=== PATIENT | male | born 1945 | race Caucasian/White ===

== ENCOUNTER 2016-03-18 16:14 | Inpatient (IN) | payer MEDICARE ==
[~2016-03-18] VITALS: Ht 177.8 cm; Wt 119.7 kg
[~2016-03-18 16:14] MED LIST: ADVIL200 MG PO; BAYER CHEWABLE81 MG PO; CARAFATE1 G/10 ML PO; HYDROCHLOROTHIA25 MG PO; KLOR-CON 1010 MEQ PO; MULTIPLE VITAMI1 TA1 PO; PRAVACHOL20 MG PO; PROTONIX40 MG PO
[2016-03-18 16:59] LABS: BASOPHILS 0.1 % (0.0-2.0); HEMATOCRIT 43.1 % (42.0-54.0); HEMOGLOBIN 14.7 g/dL (13.5-17.5); IMMATURE GRANULOCYTES 0.2 % (0-5); LYMPHOCYTES 17.1 % (15-50); MCH 30.8 pg (26.0-34.0); MCHC 34.1 g/dL (31.0-37.0); MCV 90.4 fL (80.0-100.0); MEAN PLATELET VOLUME 10.1 fL (7.4-10.4); MONOCYTES 9.3 % (2-11); NEUTROPHILS 72.3 % (40-80); RBC 4.77 10x6/uL (4.20-6.10); RDW 14.9 % (11.5-14.5); WBC 8.3 10x3/uL (4.8-10.8)
[2016-03-18 17:18] LABS: PLATELET COUNT 181 10x3/uL (130-400)
[2016-03-18 17:35] LABS: ALBUMIN 3.2 g/dL (3.4-5.0); ALKALINE PHOSPHATASE 46 U/L (46-116); ALT (SGPT) 37 U/L (10-68); AMYLASE - SERUM 49 U/L (25-115); BILIRUBIN - TOTAL 0.62 mg/dL (0.2-1.3); CALC OSMOLALITY 277 mosm/kg (275-300); CALCIUM 9.5 mg/dL (8.5-10.1); CHLORIDE - SERUM 102 mmol/L (98-107); GLUCOSE 125 mg/dL (74-106); LIPASE 234 U/L (73-393); POTASSIUM - SERUM 3.5 mmol/L (3.5-5.1); PROTEIN - SERUM 7.5 g/dL (6.4-8.2); SODIUM 137 mmol/L (136-145); UREA NITROGEN 21 mg/dL (7-18); eGFR NON AFRICAN AMERICAN 79 mL/min (90-120)
[2016-03-18 20:00] VITALS: BP 106/54
[2016-03-19] VITALS (7 sets, daily range): BP systolic 100–113; BP diastolic 58–74; Ht 177.8 cm; Wt 119.7 kg
--- NOTE | 2016-03-19 07:42 | NUR ---
AWAKE AND ALERT. ORIENTED X3. C/O ABDOMINAL AND BACK PAIN LEVEL 8. REQUESTED AND GIVEN 2MG MORPHINE WITH 4MG ZOFRAN SLOW IVP FOR SAME. WILL MONITOR. LUNGS ARE CLEAR BILATERALLY, DENIES COUGH. SKIN IS INTACT WITHOUT REDNESS. IV TO RIGHT AC AREA PATENT WITHOUT REDNESS AT INSERTION SITE. DENIES NEEDS.
--- NOTE | 2016-03-19 09:30 | NUR ---
REPORTS GOOD RELIEF WITH USE OF MORPHINE. DENIES NEEDS. URINE SPECIMEN SENT TO LAB.
[2016-03-19 10:16] LABS: APPEARANCE CLEAR (CLEAR); BILIRUBIN NEGATIVE (NEGATIVE); COLOR YELLOW (YELLOW); GLUCOSE NEGATIVE (NEGATIVE); KETONE NEGATIVE (NEGATIVE); LEUKOCYTE ESTERASE NEGATIVE (NEGATIVE); NITRITE NEGATIVE (NEGATIVE); PROTEIN NEGATIVE (NEGATIVE); SPECIFIC GRAVITY 1.015 (1.005-1.020); UROBILINOGEN NORMAL (NORMAL)
--- NOTE | 2016-03-19 12:00 | NUR ---
RESTING QUIETLY WITH EYES CLOSED. DENIES NEEDS.
--- NOTE | 2016-03-19 15:04 | NUR ---
IV TO RIGHT AC FOUND TO BE OUT. D/C WITH CATHETER INTACT. RESITED TO LEFT FOREARM AFTER ONE ATTEMPT WITH 20G PER NURSING STUDENTS. DENIES NEEDS.
--- NOTE | 2016-03-19 18:48 | NUR ---
REPORTS PAIN IS COMPLETELY GONE. DENIES NEEDS. NO CHANGES NOTED.
--- NOTE | 2016-03-19 20:00 | NUR ---
ASSESSSMENT PER FLOWSHEET. IV PATENT LEFT ARM OF D5LR INFUSING AT 100CC'S/HR SITE CLEAR. SR UP X2 CALL LIGHT WITHIN REACH. DENIES NEEDS.
--- NOTE | 2016-03-19 21:15 | NUR ---
MEDS GIVEN PER MAR.
[2016-03-20] VITALS: BP 103/59
--- NOTE | 2016-03-20 | NUR ---
EYES CLOSED RESPIRATIONS WITH EASE AND UNLABORED.
--- NOTE | 2016-03-20 02:30 | NUR ---
RESTING QUIETLY RESPIRATIONS WITH EASE AND UNLABORED.
[2016-03-20 04:00] VITALS: BP 116/68
--- NOTE | 2016-03-20 04:26 | NUR ---
AWAKE NEW IV BAG HUNG TO PRESENT INFUSION SITE.
[2016-03-20 06:51] LABS: BASOPHILS 0.4 % (0.0-2.0); EOSINOPHILS 2.5 % (0-7); HEMATOCRIT 39.3 % (42.0-54.0); HEMOGLOBIN 12.9 g/dL (13.5-17.5); IMMATURE GRANULOCYTES 0.1 % (0-5); MCH 30.2 pg (26.0-34.0); MCHC 32.8 g/dL (31.0-37.0); MEAN PLATELET VOLUME 9.8 fL (7.4-10.4); MONOCYTES 11.2 % (2-11); NEUTROPHILS 52.8 % (40-80); PLATELET COUNT 172 10x3/uL (130-400); RBC 4.27 10x6/uL (4.20-6.10); RDW 15.8 % (11.5-14.5); WBC 7.1 10x3/uL (4.8-10.8)
[2016-03-20 06:56] LABS: APTT 24.7 SECONDS (22.8-39.4); INR 1.17 (0.85-1.17); PROTIME 14.8 SECONDS (11.6-15.0)
[2016-03-20 07:09] LABS: ALBUMIN 2.8 g/dL (3.4-5.0); ALKALINE PHOSPHATASE 32 U/L (46-116); ALT (SGPT) 32 U/L (10-68); BILIRUBIN - DIRECT 0.16 mg/dL (0.00-0.30); BILIRUBIN - INDIRECT 0.54 mg/dL (0.00-1.00); CALC OSMOLALITY 283 mosm/kg (275-300); CALCIUM 8.4 mg/dL (8.5-10.1); CARBON DIOXIDE 28.5 mmol/L (21.0-32.0); CHLORIDE - SERUM 107 mmol/L (98-107); CREATININE - SERUM 0.9 mg/dL (0.6-1.3); GLUCOSE 92 mg/dL (74-106); MAGNESIUM - SERUM 2.1 mg/dL (1.8-2.4); PHOSPHOROUS 2.9 mg/dL (2.5-4.9); PROTEIN - SERUM 6.3 g/dL (6.4-8.2); SODIUM 142 mmol/L (136-145); UREA NITROGEN 16 mg/dL (7-18); eGFR NON AFRICAN AMERICAN 89 mL/min (90-120)
--- NOTE | 2016-03-20 07:35 | NUR ---
RECIEVED PATIENT DURING WALKING ROUNDS. PATIENT LYING IN BED WITH EVEN RESPIRATIONS. NO SIGNS OF DISTRESS NOTED. UNDERSTANDS HE IS ON A NPO DIET. NO QUESTIONS OR CONCERNS AT THIS TIME. ASSESSMENT DONE PER FLOW SHEET. BED IN LOW POSITION AND CALL LIGHT WITHIN REACH. WILL CONTINUE TO MONITOR.
[2016-03-20 08:26] VITALS: BP 119/67
--- NOTE | 2016-03-20 11:12 | NUR ---
PATIENT IV SITE RED AND HARDENED. REMOVED IV WITH CATHETER INTACT AND PLACED IN SHARPS. RESITED TO THE RIGHT FOREARM WITH NO RESISTANCE, FLUSH AND BLOOD RETURN PRESENT, FLUIDS RESUMED PER ORDERS. WILL CONTINUE TO MONITOR. HOT PACK WAS PLACED ON REDDENED AREA.
[2016-03-20 11:52] VITALS: BP 126/74
[2016-03-20 14:33] VITALS: BP 122/80
--- NOTE | 2016-03-20 14:39 | NUR ---
PATIENT AWAKE, ALERT AND ORIENTED X'S 4. RESPIRATIONS ARE EVEN AND UNLABORED ON ROOM AIR. NO SIGNS OF DISTRESS NOTED. BED IN LOWEST POSITION, CALL LIGHT IN REACH. BED RAILS UP X'S 2.
--- NOTE | 2016-03-20 20:00 | NUR ---
ASSESSMENT PER FLOWSHEET. IV PATENT RT FOREARM OF D5LR INFUSING AT 100CC'S/HR. SITE CLEAR. SR UP X2 CALL LIGHT WITHIN REACH. DENIES NEEDS.
--- NOTE | 2016-03-20 21:45 | NUR ---
MEDS GIVEN PER FLOWSHEET.
[2016-03-20 22:11] VITALS: BP 122/77
--- NOTE | 2016-03-21 | NUR ---
EYES CLOSED RESPIRATIONS WITH EASE AND UNLABORED.
--- NOTE | 2016-03-21 02:30 | NUR ---
RESTING QUIETLY RESPIRATIONS WITH EASE AND UNLABORED.
[2016-03-21 02:59] VITALS: BP 115/60
--- NOTE | 2016-03-21 04:44 | NUR ---
EYES CLOSED RESPIRATIONS WITH EASE AND UNLABORED.
[2016-03-21 06:13] LABS: BASOPHILS 0.3 % (0.0-2.0); EOSINOPHILS 4.4 % (0-7); HEMATOCRIT 40.6 % (42.0-54.0); HEMOGLOBIN 13.4 g/dL (13.5-17.5); IMMATURE GRANULOCYTES 0.2 % (0-5); LYMPHOCYTES 28.6 % (15-50); MCH 30.3 pg (26.0-34.0); MCV 91.9 fL (80.0-100.0); MEAN PLATELET VOLUME 9.9 fL (7.4-10.4); MONOCYTES 11.7 % (2-11); NEUTROPHILS 54.8 % (40-80); PLATELET COUNT 156 10x3/uL (130-400); RBC 4.42 10x6/uL (4.20-6.10); RDW 15.6 % (11.5-14.5); WBC 6.3 10x3/uL (4.8-10.8)
[2016-03-21 06:40] LABS: CALC OSMOLALITY 277 mosm/kg (275-300); CALCIUM 8.4 mg/dL (8.5-10.1); CARBON DIOXIDE 29.1 mmol/L (21.0-32.0); CHLORIDE - SERUM 105 mmol/L (98-107); CREATININE - SERUM 0.8 mg/dL (0.6-1.3); GLUCOSE 94 mg/dL (74-106); POTASSIUM - SERUM 3.3 mmol/L (3.5-5.1); SODIUM 140 mmol/L (136-145); eGFR NON AFRICAN AMERICAN > 90 mL/min (90-120)
[2016-03-21 06:41] LABS: UREA NITROGEN 10 mg/dL (7-18)
--- NOTE | 2016-03-21 07:40 | NUR ---
REPORT RECEIVED. CALL LIGHT IN REACH.
--- NOTE | 2016-03-21 08:00 | NUR ---
ASSESSMENT COMPLETED. REFUSES SCDs. IV TO RIGHT FOREARM WITH SWELLING, REDNESS, AND PAIN. DC'D WITH TIP INTACT.
--- NOTE | 2016-03-21 08:01 | NUR ---
PATIENT SITTING UP IN BED READING THE NEWSPAPER. NO COMPLAINTS AT THIS TIME. IV INTACT. CALL LIGHT WITHIN REACH.
[2016-03-21 08:42] VITALS: BP 121/82
--- NOTE | 2016-03-21 10:15 | NUR ---
AM MEDS ADMINISTERED. IV RESITED TO LEFT UPPERARM WITH 22 GA X2 STICKS. CALL LIGHT IN REACH.
[2016-03-21 11:58] VITALS: BP 126/78
--- NOTE | 2016-03-21 12:05 | NUR ---
SITTING UP IN BED WITH NO NEEDS VOICED. CALL LIGHT IN REACH.
--- NOTE | 2016-03-21 14:11 | NUR ---
RYAN IVPB. IV TUBING CHANGED PER HOSPITAL PROTOCOL. CALL LIGHT IN REACH.
[2016-03-21 15:11] VITALS: BP 135/76
--- NOTE | 2016-03-21 16:10 | NUR ---
PROTONIX AND CARAFATE PO. CALL LIGHT IN REACH.
--- NOTE | 2016-03-21 18:34 | NUR ---
NO CHANGES IN INITIAL ASSESSMENT. CALL LIGHT IN REACH. WILL CONTINUE WITH PLAN OF CARE.
--- NOTE | 2016-03-21 19:20 | NUR ---
ASSESSMENT COMPLETED, NO ACUTE DISTRESS NOTED, PT DENIES PAIN OR NEEDS, SR'S UP X2, REFUSES SCD'S, CL IN REACH, WILL MONITOR
--- NOTE | 2016-03-21 20:27 | NUR ---
MEDS GIVEN PER MAR, [place] WE[place], DENIES FURTHER NEEDS, HOB ELEVATED, SR'S UP, CL IN REACH
[2016-03-21 20:30] VITALS: BP 151/85
--- NOTE | 2016-03-21 22:30 | NUR ---
LYING IN BED WATCHING TV, DENIES NEEDS, CL IN REACH
--- NOTE | 2016-03-22 05:14 | NUR ---
MEDS GIVEN PER MAR, [place] WELL, CL IN REACH
[2016-03-22 05:30] VITALS: BP 121/76
[2016-03-22 06:18] LABS: BASOPHILS 0.4 % (0.0-2.0); HEMATOCRIT 40.5 % (42.0-54.0); HEMOGLOBIN 13.4 g/dL (13.5-17.5); IMMATURE GRANULOCYTES 0.2 % (0-5); LYMPHOCYTES 28.9 % (15-50); MCH 30.2 pg (26.0-34.0); MCHC 33.1 g/dL (31.0-37.0); MCV 91.4 fL (80.0-100.0); MEAN PLATELET VOLUME 10.1 fL (7.4-10.4); NEUTROPHILS 52.5 % (40-80); PLATELET COUNT 165 10x3/uL (130-400); RBC 4.43 10x6/uL (4.20-6.10); RDW 15.3 % (11.5-14.5); WBC 5.6 10x3/uL (4.8-10.8)
[2016-03-22 06:46] LABS: ALBUMIN 2.8 g/dL (3.4-5.0); ALKALINE PHOSPHATASE 35 U/L (46-116); ALT (SGPT) 37 U/L (10-68); BILIRUBIN - TOTAL 0.43 mg/dL (0.2-1.3); CALC OSMOLALITY 279 mosm/kg (275-300); CALCIUM 8.6 mg/dL (8.5-10.1); CARBON DIOXIDE 29.3 mmol/L (21.0-32.0); CHLORIDE - SERUM 106 mmol/L (98-107); CREATININE - SERUM 0.8 mg/dL (0.6-1.3); GLUCOSE 105 mg/dL (74-106); POTASSIUM - SERUM 3.3 mmol/L (3.5-5.1); PROTEIN - SERUM 6.5 g/dL (6.4-8.2); SODIUM 141 mmol/L (136-145); UREA NITROGEN 10 mg/dL (7-18); eGFR NON AFRICAN AMERICAN > 90 mL/min (90-120)
--- NOTE | 2016-03-22 07:50 | NUR ---
ASSESSMENT PER FLOW SHEET.PT WITHOUT DISTRESS.CALL LIGHT IN REACH
[2016-03-22 08:39] VITALS: BP 145/85
--- NOTE | 2016-03-22 08:45 | NUR ---
Patient Name: DANIEL JUAREZ Admission Status: ER Accout number: [id number] Admission Date: 03-18-2016 : 1945 Admission Diagnosis:UNSPECIFIED INTESTINAL OBSTRUCTION Attending: KERVIN Current LOS: 4 Anticipated DC Date: 03-22-2016 Planned Disposition: Home Primary Insurance: MEDICARE A & B Discharge Planning Comments: CM MET WITH PATIENT REGARDING D/C NEEDS AND PLANS. PATIENT STATED HE LIVES ALONE AND HIS BROTHER (RAMA) WILL PICK HIM UP TODAY AT DISCHARGE. PATIENT STATED THERE ARE NO STEPS OR STAIRS AT HIS HOME. PATIENTS BROTHER STATED HE HAS [facility] [address] AT THIS TIME. PATIENT IS INDEPENDENT EXCEPT HIS BROTHER HELPS WITH MEDICATION MANAGEMENT. PATIENTS PCP IS DR. GOLDMAN AND PHARMACY IS [facility] ON [address]. PATIENT DENIES HOME HEALTH AT THIS TIME. CM WILL CONTINUE TO FOLLOW PATIENT WITH D/C NEEDS AND PLANS. PATIENT SIGNED THE DISCHARGE [facility]. PCP DR. MAZARIEGOS [facility] ON [address] [phone] RAMA (BROTHER) [phone] Cigarette Carton Sealer: Niru Blanco Is the patient Alert and Oriented? Yes 0 * How many steps to enter\exit or inside your home? 0 0 * PCP DR. GOLDMAN 0 * Pharmacy [facility] 0 * Preadmission Environment Home Alone 0 * ADLs Independent 0 * Equipment Cane 0 * List name and contact numbers for known caregivers / representatives who currently or will assist patient after discharge: RAMA (BROTHER) [phone] * Community resources currently utilized Other 0 * Please name any agencies selected above. [facility] [address] 0 * Additional services required to return to the preadmission environment? Yes 0 * Can the patient safely return to the preadmission environment? Yes 0 * Has this patient been hospitalized within the prior 30 days at any hospital? No 0 Grand Total: 0
--- NOTE | 2016-03-22 09:40 | NUR ---
IV DCD CATH INTACT.DISCHARGE INSTRUCTIONS,STATES UNDERSTANDING.
--- NOTE | 2016-03-22 09:59 | NUR ---
LEFT FLOOR VIA WHEELCHAIR FOR TRANSPORT HOME
--- NOTE | 2016-03-31 07:59 | HP ---
PATIENT: DANIEL JUAREZ MEDICAL RECORD: [id number] ACCOUNT: [id number] LOCATION:[id number] : [birth year] ADMISSION DATE: 03/18/16 HISTORY AND PHYSICAL EXAMINATION HISTORY OF PRESENT ILLNESS: A 70-year-old male who presented to the Emergency Room last night with nausea and vomiting and epigastric abdominal pain. He denies any diarrhea. PAST MEDICAL HISTORY: Significant for acute GI bleed last year, previous DVT, hypertension, hyperlipidemia, unclear history of prostate cancer with subsequent surgery, very limited historian. FAMILY HISTORY: Unknown. He is adopted. ALLERGIES: No known drug allergies. CURRENT MEDICATIONS: Pravastatin 20 mg at bedtime, aspirin 81 mg daily, hydrochlorothiazide 25 mg daily, potassium chloride 10 mEq daily, Protonix 40 mg b.i.d., Carafate, and multivitamin. REVIEW OF SYSTEMS: GENERAL: The patient is a somewhat limited historian. He is slow and somewhat mentally challenged. GENITOURINARY: Admits acute symptoms as above. No known change in weight, loss of appetite with acute symptoms. HEENT: He denies cephalgia, visual changes, tinnitus, epistaxis or dysphagia. CARDIOVASCULAR: He denies chest pain or palpitations. PULMONARY: He denies hemoptysis. He denies night sweats. GASTROINTESTINAL: He admits nausea, improved with current medications and epigastric upper abdominal pain. GENITOURINARY: He denies dysuria. He denies change in frequency. MUSCULOSKELETAL: No acute changes. ENDOCRINE: He denies polyuria, polydipsia, or polyphagia. PHYSICAL EXAMINATION: VITAL SIGNS: Temperature 99, blood pressure 113/66, heart rate 81, respirations 19, O2 sats 97% on room air. GENERAL: Alert and oriented. No present distress. HEENT: Normocephalic and atraumatic. Eyes: Pupils are equally round and reactive to light and accommodation. Extraocular muscles intact. Conjunctivae not injected. Ears: Canals patent, TMs are intact. Nose: Nares patent without drainage. Throat: No erythema and no exudates. NECK: Supple. No lymphadenopathy and no JVD. HEART: Regular rate and rhythm. LUNGS: Clear to auscultation bilaterally. Breathing is nonlabored. ABDOMEN: Mild distention, epigastric upper abdominal tenderness. No rebound and no guarding. EXTREMITIES: Present times 4. Trace edema, unchanged. IMAGING: EKG shows a sinus rhythm, first-degree AV block, rate of 72. LABORATORY DATA: CBC: White count 8.3, hemoglobin 14.7, hematocrit 43.1, platelets 181. Chemistry shows a sodium of 137, potassium 3.5, chloride 102, bicarbonate 28. BUN 21, creatinine 1.0. AST 33, ALT 37. Albumin 3.2, amylase HISTORY AND PHYSICAL [id number] CHUNN,DANIEL F 49, lipase 234. DIAGNOSTIC DATA: CT abdomen and pelvis, distention of a mid level small bowel with decompression of distal small bowel and colon. Concern for earlier and complete small-bowel obstruction. ASSESSMENT AND PLAN: Acute nausea and vomiting, early small-bowel obstruction. The patient is admitted n.p.o., IV fluids. Surgery consulted. Supportive care and pain management. TRANSINT:[id number] Voice Confirmation ID: [id number] DOCUMENT ID: [id number] ISAURO GOLDMAN DO at 0759 CC: [id number] DICTATION DATE: 03/19/16815 EPIC SPECIALIST: 03/19/16916 DIS IN 03/22/16 [id number] [place] [address]
== END 2016-03-22 10:00 | disposition home or self-care (01) | DRG 390 ==
LOC: D.ER 16:14 → D.MS 20:23
PROVIDERS: Emergency Medicine; Family Medicine; Surgery; ADMIT Family Medicine
DX: K56.60 Unspecified intestinal obstruction (principal); K56.7 Ileus, unspecified; I10 Essential (primary) hypertension; E78.5 Hyperlipidemia, unspecified; Z86.718 Personal history of other venous thrombosis and embolism; E87.6 Hypokalemia

== ENCOUNTER → 2019-04-12 08:42 | Outpatient (CLI) | payer MEDICARE ==
[2016-03-19 10:15] VITALS: BMI 37.8
--- NOTE | 2019-04-16 11:54 | EC ---
PATIENT:DANIEL JUAREZ DATE OF SERVICE: 04/12/19 SEX: M MEDICAL RECORD: [id number] DATE OF : [birth year] LOCATION:[facility] AGE OF PATIENT: 74 ADMISSION DATE: 04/12/19 REFERRING PHYSICIAN: INTERPRETING PHYSICIAN: TAYLA KIRBY MD ECHOCARDIOGRAM REPORT ECHO CHARGES 4 ECHO COMPLETE Date: 04/12/19 CLINICAL DIAGNOSIS: ANGINA/SHABAZZ/SOB/SYNCOPE ECHOCARDIOGRAPHIC MEASUREMENTS (adult normal given) AC root (d.<3.7cm) 3.6 cm LV Septum d (<1.2 cm> 1.3 cm Valve Excursion 1.1 cm LV Septum (systole) 1.9 cm Left Atria (s.<4.0cm> 3.6 cm LVPW d(<1.2cm) 1.3 cm RV (d.<2.3cm) 3.2 cm LVPW (sytole) 1.9 cm LV diastole(<5.6CM) 5.4 cm MV E-F(>70mm/sec) cm LV systole 2.8 cm LVOT Diameter 1.7 cm MV exc.(>10mm) cm Est.ejection fraction (50-75%) % DOPPLER: LVIT cm/sec A 119 cm/sec E 89.0 cm/sec LA cm/sec RVSP 33.2 mmHg LVOT 110 cm/sec AOP1/2T m/s Asc. Ao 240 cm/sec RVOT 42.0 cm/sec RA cm/sec PA 183 cm/sec AV Gradient Peak 23.0 mmHg AV Mean 13.2 mmHg AV Area 1.0 cm MV Gradient Peak 4.7 mmHg MV Mean 1.9 mmHg MV Area cm COMMENTS: OP - HC Mail Opener: 1 SANTOSH PABLO Real Estate Underwriter: 1 Dr. Kirby TAPE# PACS Pericardial Effusion N DATE OF SERVICE: FINDINGS: 1. Left ventricular chamber size is within normal limits. Left ventricular systolic function is normal. Overall ejection fraction estimated at 55%. 2. Left atrium is within normal limits. Right atrium and right ventricular chamber sizes are mildly dilated. 3. Valvular structures: Aortic valve demonstrates mild calcific aortic stenosis, valve area calculates to 1.0 cm-squared with gradient of 23 mm across the valve. The remaining valvular structures have normal structure and motion. ECHOCARDIOGRAM REPORT [id number] DANIEL JUAREZ 4. Doppler interrogation reveals only trace tricuspid regurgitation, no other valvular insufficiency or stenosis. Pulmonary systolic pressure estimated at 33 mmHg. 5. No evidence of pericardial effusion or left ventricular thrombus. TRANSINT:[id number] Voice Confirmation ID: [id number] DOCUMENT ID: [id number] TAYLA KIRBY MD at 1154 CC: [id number] DICTATION DATE: 04/13/19 1006 DIRECTOR SOFTWARE: 04/13/19 1244 DEP CLI 04/12/[address] [address]
--- NOTE | 2019-04-16 11:54 | ST ---
PATIENT:DANIEL JUAREZ MEDICAL RECORD: [id number] SEX: M LOCATION:[facility] ORDER #: ADMISSION DATE: 04/12/19 AGE OF PATIENT: 74 REFERRING PHYSICIAN: INTERPRETING PHYSICIAN: TAYLA ARANA MD DATE OF SERVICE: 04/12/2019 INDICATIONS: Angina, shortness of breath, hyperlipidemia. He was exercised on standard Lexiscan protocol with 33 mCi of sestamibi injected at peak stress, 11 mCi used previously for rest images. FINDINGS: Gated SPECT reveals preserved ejection fraction at 65% with good wall motion and thickening and brightening throughout all segments. SPECT imaging: Cardiolite was used as myocardial perfusion agent. There is homogeneous uptake throughout all segments at rest and stress with no evidence of inducible ischemia or previous infarction. OVERALL IMPRESSION: 1. This is a normal nuclear stress test with no evidence of inducible ischemia or previous infarction. 2. Gated SPECT reveals a preserved ejection fraction at 65%. In this patient with ongoing symptomatology, the current scan does not suggest the presence of hemodynamically significant coronary artery disease. Evaluate noncardiac etiology of chest pain. TRANSINT:[id number] Voice Confirmation ID: [id number] DOCUMENT ID: [id number] TAYLA ARANA MD at 1154 CC: ISAURO GOLDMAN [id number] DICTATION DATE: 04/13/19 1519 TECHNICAL ARCHITECT: 04/14/19 0641 DEP CLI 04/12/19 [id number] [place] [address]
== END | disposition home or self-care (01) ==
LOC: D.HCCECHO 08:42
PROVIDERS: ATTEND Internal Medicine Interventional Cardiology
DX: R55 Syncope and collapse (principal); I20.9 Angina pectoris, unspecified

== ENCOUNTER 2019-08-28 06:45 | Outpatient (CLI) | payer MEDICARE ==
[~2019-08-28] VITALS: Ht 177.8 cm; Wt 116.9 kg
--- NOTE | ~2019-08-28 | HEMODYNAMI ---
PATIENT:DANIEL JUAREZ MEDICAL RECORD: [id number] : 49 LOCATION:[facility] ADMISSION DATE: 08/28/19 Generatedon:08/28/20199:13 Patient name: DANIEL JUAREZ Patient #: [id number] : 1945 Date of study: 08/28/2019 Page: Of Hemodynamic Procedure Report Patient Data Patient Demographics Procedure consent was obtained First Name: DANIEL Gender: Male Last Name: LARRY : 1945 Middle Initial: F Age: 74 year(s) Patient #: [id number] Race: SSN: [id number] Additional ID: [id number] Contact details [address]: [address] [place] [address] State: [place] City: [place] Zip code: [address] Past Medical History Allergies: No known allergies Admission Admission Data Admission Date: 08/28/2019 Admission Time: 6:45 Admit Source: Other Insurance Payor: Medicare [facility] #: [id number] Height (in.): 70.08 BSA: 2.33 (m2) Height (cm.): 178 BMI: 36.93 (kg/m2) Weight (lbs.): 257.94 Weight (kg.): 117 Lab Results Lab Result Date: 08/28/2019 Lab Result Time: 0:00 Biochemistry Name Units Result Min Max Creatinine mg/dl 1 --(--*-)-- 0.6 1.3 eGFR ml/min 78 *-(----)-- 90 120 NONAFRICAN Procedure Procedure Types Cath Procedure Diagnostic Procedure C [facility] w/Coronaries Sedation Charges Moderate Sedation up to 15 minutes Procedure Description Procedure Date Procedure Date: 08/28/2019 Procedure Start Time: 8:59 Procedure End Time: 9:11 Procedure Staff Name Function Dakota Middleton MD Performing Physician eBatriz Sotomayor RN Nurse Nedra Chowdary RT Scrub Gill Molina RT Monitor Indication Aortic valve disease Shortness of breath Procedure Data Cath Procedure Fluoroscopy Diagnostic fluoroscopy Total fluoroscopy Time: 2.8 time: 2.8 min min Diagnostic fluoroscopy Total fluoroscopy dose: 998 dose: 998 mGy mGy Contrast Material Contrast Material Type Amount (ml) Isovue 300 62 Entry Location Entry Primary Successful Side Size Upsize Upsize Entry Closure Andrews ccessful Closure Location (Fr) 1 (Fr) 2 (Fr) Remarks Device Remarks Radial Right 6 Fr Mechanical artery Short Compression Estimated blood loss: 5 ml Diagnostic catheters Device Type Used For End Catheter Placement DIAGNOSTIC Chandler 110cm Procedure 5Fr catheter ([id number]) Procedure Complications No complications Procedure Medications Medication Administration Route Dosage 0.9% NaCl I.V. 100 ml/hr Oxygen etCO2 Nasal cannula 2 l/min Lidocaine 2% added to field 20 Heparin Flush Bag added to field 2 bags (1000units/500ml NS) Radial Cocktail added to field 1 syringe (Verapamil 2mg/Nitro 400mcg/Heparin 1500units) Versed I.V. 2 mg Fentanyl I.V. 50 mcg Fentanyl I.V. 50 mcg Hemodynamics Rest BSA: 2.33 (m2) O2 Consumption: Estimated: 267.01 (ml/min) O2 Consumption indexed : Estimated:114.6 (ml/min/m) Heart Rate: 68 (bpm) Pressure Samples Time Site Value (mmHg) Purpose Heart Use Rate(bpm) 9:03 LV 129/18,23 Snapshot 92 9:04 AO (80) Pullback 67 9:04 LV 125/18,23 Pullback 67 Gradients Valve Time Site 1 Site Mean SEP/DFP Peak To Heart Use 2 (mmHg) (sec/min) Peak Rate (mmHg) (bpm) Aortic 9:04 LV AO 67 125/18,23 (80) Snapshots Pre Cath Intra NCS Post Cath Vital Signs Time Heart Resp SPO2 etCO2 NIBP (mmHg) Rhythm Pain Sedation Rate (ipm) (%) (mmHg) Status Level (bpm) 8:35:34 69 19 98 36.7 116/75(97) NSR 0 (11) 10(A) , No pain 8:39:44 75 19 97 38.7 101/73(83) NSR 0 (11) 10(A) , No pain 8:43:50 74 18 97 29.2 99/72(83) NSR 0 (11) 10(A) , No pain 8:47:54 71 16 98 16.5 112/79(90) NSR 0 (11) 10(A) , No pain 8:52:01 74 14 97 12.7 101/74(95) NSR 0 (11) 9(A) , No pain 8:56:07 74 13 98 15 116/72(103) NSR 0 (11) 9(A) , No pain 9:00:19 73 13 98 18 125/69(89) NSR 0 (11) 9(A) , No pain 9:04:37 69 13 97 29.2 117/46(88) NSR 0 (11) 9(A) , No pain 9:08:45 76 13 91 29.2 106/60(86) NSR 0 (11) 9(A) , No pain Medications Time Medication Route Dose Verified Delivered Reason Notes Ef fectiveness by by 8:41:47 0.9% NaCl I.V. 100 Dakota Beatriz used for ml/hr Kane Sotomayor transmitter operator 8:41:53 Oxygen etCO2 2 l/min Dakota Beatriz used for Nasal Kane Sotomayor procedure cannula RN 8:41:58 Lidocaine 2% added 20ml Dakota Dakota for local to vial Kane Middleton MD anesthetic field 8:42:03 Heparin Flush added 2 bags Dakota Dakota used for Bag to Kane Middleton MD procedure (1000units/500ml field NS) 8:42:08 Radial Cocktail added 1 Dakota Dakota used for (Verapamil to syringe Kane Middleton MD procedure 2mg/Nitro field 400mcg/Heparin 1500units) 8:43:23 Versed I.V. 2 mg Dakota Beatriz for Kane Sotomayor sedation RN 8:43:36 Fentanyl I.V. 50 mcg Dakota Beatriz for Kane Sotomayor sedation RN 8:49:24 Fentanyl I.V. 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 Start room use. 8:21:16 ACC Patient presents with Stable Angina CCS Anginal Class 1--Ordinary physical activity does not cause angina, angina occurs with strenuos, rapid, or prolonged activity.. 8:21:27 Plan of Care:Hemodynamics will remain stable., Cardiac rhythm will remain stable., Comfort level will be maintained., Respiratory function will remain adequate., Patient/ family verbilizes understanding of procedure., Procedure tolerated without complication., Recovers from procedure without complications.. 8:21:29 Time tracking: Regular hours (M-F 7:00 - 5:00) 8:21:37 H&P Date Dictated: 08/28/2019 Within 30 days and on chart.. 8:21:41 Patient NPO since Midnight. 8:21:47 Is patient on blood thinner?No 8:21:49 Patient diabetic? No. 8:21:51 If diabetic: On Metformin? N/A 8:21:55 Is the patient allergic to Iodine/contrast media? No. 8:21:57 Was the patient premedicated? N/A 8:34:28 Vital chart was started 8:36:05 Lab Result : eGFR NONAFRICAN 78 ml/min 8:36:05 Lab Result : Creatinine 1 mg/dl 8:36:35 Warm blankets applied, and wang hugger turned on for patient comfort. 8:36:35 Correct patient and procedure confirmed by team. 8:36:36 ECG and BP/O2 sat monitors applied to patient. 8:36:38 Baseline sample Acquired. 8:36:42 Rhythm: sinus rhythm 8:36:45 Full Disclosure recording started 8:36:49 Pre-procedure instructions explained to patient. 8:36:49 Pre-op teaching completed and patient verbalized understanding. 8:36:53 Family unavailable. 8:36:59 Previous problem with sedation/anesthesia? No ? 8:37:01 Snore? Yes 8:37:02 Sleep apnea? No 8:37:03 Deviated septum? No 8:37:05 Opens mouth fully? Yes 8:37:06 Sticks out tongue? Yes 8:37:09 Airway obstruction? No ? 8:37:11 Dentures? No ? 8:37:15 Pre procedure: right dorsailis pedis pulse 1+ Palpable, but thready & weak; easily obliterated 8:37:18 Pre procedure: right radial pulse 1+ Palpable, but thready & weak; easily obliterated 8:37:21 Modified Reinier's test Radial < 7 seconds 8:37:23 Patient pain scale 0/10 ?. 8:37:29 IV patent on arrival in left hand with 0.9% NaCl at KVO. 8:37:34 Lab results completed and on chart. 8:37:37 Stress Test: no; N/A ? 8:37:42 Right Radial & Right Groin area was prepped with chlora-prep and draped in sterile fashion 8:37:43 Alarms reviewed by R. N. 8:37:44 Sharps counted by scrub and verified by R.N. 8:38:47 Risk of Mortality: 0.1 8:38:48 Risk of blood transfusion: 0.2 8:38:52 Risk of ASIA: 0.5 8:41:13 Use device set Radial Dx or PCI 8:41:14 ACIST Syringe (35659) opened to sterile field. 8:41:15 Medline Cath Pack ([id number]) opened to sterile field. 8:41:15 Bag Decanter (2002S) opened to sterile field. 8:41:16 ACIST Hand Control (48075) opened to sterile field. 8:41:16 ACIST Manifold (64572) opened to sterile field. 8:41:17 MBrace Wrist Support ([id number]) opened to sterile field. 8:41:18 NEEDLE Cook 21G 4cm Radial (V86880) opened to sterile field. 8:41:20 EMERALD Guide Wire (388-537) opened to sterile field. 8:41:21 SHEATH 6FR RAIN ([id number]) opened to sterile field. 8:41:47 0.9% NaCl 100 ml/hr I.V. was administered by Beatriz Sotomayor RN; used for procedure; Verbal order read back and verified. 8:41:53 Oxygen 2 l/min etCO2 Nasal cannula was administered by Beatriz Sotomayor RN; used for procedure; Verbal order read back and verified. 8:41:58 Lidocaine 2% 20ml vial added to field was administered by Dakota Middleton MD; for local anesthetic; Verbal order read back and verified. 8:42:03 Heparin Flush Bag (1000units/500ml NS) 2 bags added to field was administered by Dakota Middleton MD; used for procedure; Verbal order read back and verified. 8:42:08 Radial Cocktail (Verapamil 2mg/Nitro 400mcg/Heparin 1500units) 1 syringe added to field was administered by Dakota Middleton MD; used for procedure; Verbal order read back and verified. 8:42:35 --------ALL STOP TIME OUT------ 8:42:36 Final Timeout: patient, procedure, and site verified with staff and physician. All members of the team are in agreement. 8:42:38 Right Radial & Right Groin site verified by team. 8:42:42 Fire Safety Assessment: A--An alcohol-based skin anteseptic being used preoperatively., C--Open oxygen or nitrous oxide is being used., D--An ESU, laser, or fiber-optic light is being used. 8:42:48 Physical assessment completed. ASA score P 2 - A patient with mild systemic disease as per Dakota Middleton MD. 8:42:55 2) 60-89 Mildly reduced kidney function, and other findings (as for stage 1) point to kidney disease. 8:42:58 Maximum allowable contrast dose (3.7 X eGFR X 0.75)216 ml. 8:43:01 Sedation plan: IV Moderate Sedation Medication:Versed, Fentanyl 8:43:23 Versed 2 mg I.V. was administered by Beatriz Sotomayor RN; for sedation; Verbal order read back and verified. 8:43:36 Fentanyl 50 mcg I.V. was administered by Beatriz Sotomayor RN; for sedation; Verbal order read back and verified. 8:49:24 Fentanyl 50 mcg I.V. was administered by Beatriz Sotomayor RN; for sedation; Verbal order read back and verified. 8:49:50 Admit Source: Other 8:50:46 Indication : Aortic valve disease 8:51:20 Indication : Shortness of breath 8:52:22 Zero performed for pressure channel P1 8:52:30 Zero performed for pressure channel P1 8:52:34 Zero performed for pressure channel P1 8:57:41 Procedure started. 8:59:42 Local anesthetic to right radial artery with Lidocaine 2% by Dakota Middleton MD.INITIAL ACCESS ONLY 9:01:57 A 6 Fr Short sheath was inserted into the Right Radial artery 9:02:20 A DIAGNOSTIC Chandler 110cm 5Fr catheter ([id number]) was advanced over the wire and used for Procedure. 9:03:08 LV angiography performed. 9:03:56 EF : 60 % 9:04:33 LCA angiography performed. 9:06:22 RCA angiography performed. 9:08:31 Catheter removed. 9:08:34 ZEPHYR LARGE TR BAND (510609) opened to sterile field. 9:09:26 Sheath removed intact; hemostasis achieved with Mechanical Compression to the Right Radial artery. 9:09:29 Procedure ended.(Physican Out) 9:09:47 Fluoroscopy time 02.80 minutes. 9:09:51 Flurop Dose total: 998 9:09:51 Fluoroscopy dose: 998 mGy 9:09:56 Dose Area Product 29030 mGy/cm. 9:10:01 Contrast amount:Isovue 300 62ml. 9:10:04 Maximum allowable dose exceeded? No. 9:10:05 Sharps counted by scrub and verified by R.N. 9:10:08 Holbrook band inflated with 10cc of air. 9:10:09 Insertion/operative site no bleeding no hematoma. 9:10:12 Post Procedure Pulses reassessed and unchanged 9:10:16 Post-procedure physical assessment completed. ASA score P 2 - A patient with mild systemic disease as per Dakota Middleton MD. 9:10:19 Post procedure rhythm: unchanged. 9:10:22 Estimated blood loss: 5 ml 9:10:26 Post procedure instruction explained to patient.Patient verbalizes understanding. 9:10:40 Procedure type changed to Cath procedure, Diagnostic procedure, LHC, [facility] w/Coronaries, Sedation Charges, Moderate Sedation up to 15 minutes 9:10:41 Procedure and supply charges have been captured, reviewed, submitted and are correct. 9:11:02 Procedure Complication : No complications 9:11:04 Vital chart was stopped 9:11:07 [facility] Findings: mild to moderate CAD (<70%) 9:11:10 See physician's report for complete and final results. 9:11:11 Report given to Pre/Post Procedure Room. 9:11:14 Patient transfered to Pre/Post Procedure Room with Stretcher. 9:11:16 Procedure ended. 9:11:16 Full Disclosure recording stopped 9:11:26 End room use (Document Last) 9:11:53 End room use (Document Last) 9:12:13 End room use (Document Last) Device Usage Item Name Manufacture Quantity Catalog Hospital Part Current Minima l Lot# / Number Charge Number Stock Stock Serial# Code ACIST Acist 1 41120 [id number] 20 Syringe Medical (88145) Systems Inc Medline Medline 1 [id number] [id number] 47854 846010 5 Cath Pack ([id number]) Bag Microtek 1 468092 42008 976945 5 Decanter Medical Inc. () ACIST Hand Acist 1 87884 903444 212485 638274 5 Control Medical (03795) Systems Inc ACIST Acist 1 87577 190381 861480 304209 5 Manifold Medical (11275) Systems Inc MBrace Advanced 1 [id number] 694818 22862 858474 5 Wrist Vascular Support Dynamics ([id number]) NEEDLE Cook Cook Medical 1 [id number] 698412 980617 982907 5 21G 4cm Radial (M78754) EMERALD Cardinal 1 018-046 976007 526700 438258 5 Guide Wire Health (230-586) SHEATH 6FR Cardinal 1 [id number] 482453 [id number] 9986[address] [facility] Health (3821375) DIAGNOSTIC Terumo 1 40-9566 675536 414966 789301 5 Chandler 110cm 5Fr catheter (559187) ZEPHYR Cardinal 1 110235 851051 0257403 243778 5 LARGE TR Health BAND (478070) Signature Audit [place] Stage Time Signature Unsigned Intra-Procedure 08/28/2019 Gill Molina 9:11:53 AM RT(R) Intra-Procedure 08/28/2019 Beatriz Sotomayor 9:12:13 AM RN Intra-Procedure 08/28/2019 Dakota Middleton MD 9:13:14 AM Signatures Performing Physician : Signature : Dakota Middleton MD Date : Time : Nurse : Beatriz Sotomayor RN Signature : Date : Time : Monitor : Gill Jesse Signature : RT Date : Time : [address] [place] [address]
[2019-08-28 08:01] VITALS: BP 117/79; Ht 177.8 cm; Wt 116.9 kg
[2019-08-28] MEDS ORDERED: FLOMAX0.4 MG PO (08:13)
[2019-08-28 08:31] LABS: ALT (SGPT) 34 U/L (10-68); CALC OSMOLALITY 274 mosm/kg (275-300); CALCIUM 9.4 mg/dL (8.5-10.1); CARBON DIOXIDE 24.8 mmol/L (21.0-32.0); CHLORIDE - SERUM 102 mmol/L (98-107); CHOL - HDL RATIO 3.4 ratio (2.3-4.9); CHOLESTEROL, TOTAL 126 mg/dL (0-200); GLUCOSE 106 mg/dL (74-106); HDL CHOLESTEROL 37 mg/dL (32-96); LDL CHOLESTEROL 74 mg/dL (0-100); POTASSIUM - SERUM 3.4 mmol/L (3.5-5.1); SODIUM 136 mmol/L (136-145); TRIGLYCERIDE 78 mg/dL (30-200); UREA NITROGEN 22 mg/dL (7-18); eGFR NON AFRICAN AMERICAN 78 mL/min (90-120)
[2019-08-28 08:32] LABS: BASOPHILS 0.4 % (0-2); EOSINOPHILS 4.1 % (0-7); HEMATOCRIT 42.5 % (42.0-54.0); HEMOGLOBIN 14.4 g/dL (13.5-17.5); IMMATURE GRANULOCYTES 0.1 % (0-5); LYMPHOCYTES 22.1 % (15-50); MCH 31.6 pg (26.0-34.0); MCHC 33.9 g/dL (31.0-37.0); MCV 93.4 fL (80.0-100.0); MEAN PLATELET VOLUME 9.2 fL (7.4-10.4); MONOCYTES 10.7 % (2-11); NEUTROPHILS 62.6 % (40-80); RBC 4.55 10x6/uL (4.20-6.10); RDW 13.9 % (11.5-14.5); WBC 7.6 10x3/uL (4.8-10.8)
[2019-08-28 08:39] LABS: PLATELET COUNT 252 10x3/uL (130-400)
--- NOTE | 2019-08-28 09:20 | NUR ---
PT REC'D TO ROOM 7 VIA STRETCHER FROM [facility] CONSULTANT. MONITORS ESTAB. PT DROWSY. SEE ENGINEERING WRITER. ALARMS ON AND C/L IN REACH.
--- NOTE | 2019-08-28 09:35 | NUR ---
R WRIST SITE C/D/I, NO S/S BLEEDING OR HEMATOMA. R ARM/HAND WARM WITH PALP PULSES. PT DROWSY, FOLLOWS COMMANDS. ALARMS ON AND C/L IN REACH.
--- NOTE | 2019-08-28 09:38 | NUR ---
DR. BARROS IN TO SEE PT.
--- NOTE | 2019-08-28 10:00 | NUR ---
ECHO IN PROCESS AT BS. R WRIST SITE C/D/I, NO S/S BLEEDING OR HEMATOMA. PULSES PALP.
--- NOTE | 2019-08-28 10:15 | NUR ---
ECHO DONE. R WRIST SITE C/D/I, NO S/S BLEEDING OR HEMATOMA. PULSES PALP. PT RESTING QUIETLY, AROUSES EASILY. GIVEN APPLE JUICE PER REQUEST. ALARMS ON AND C/L IN REACH.
--- NOTE | 2019-08-28 10:25 | NUR ---
2 CC AIR REMOVED FROM Z BAND, NO S/S BLEEDING OR HEMATOMA. PULSES PALP. VSS. ALARMS ON AND C/L IN REACH.
--- NOTE | 2019-08-28 10:40 | NUR ---
5 CC AIR TOTAL REMOVED FROM Z BAND, NO S/S BLEEDING OR SWELLING. VSS. PT DENIES NEEDS. ALARMS ON AND C/L IN REACH.
--- NOTE | 2019-08-28 10:55 | NUR ---
TOTAL 7 CC AIR REMOVED FROM Z BAND, NO S/S BLEEDING OR SWELLING. R ARM/HAND WARM WITH PALP PULSES.
--- NOTE | 2019-08-28 10:58 | NUR ---
SPOKE WITH PT BROTHER - D/C'D INSTRUCTIONS REVIEWED. PLAN FOR PT D/C AT 1145 - HE VERBALIZES UNDERSTANDING.
--- NOTE | 2019-08-28 11:10 | NUR ---
ALL AIR REMOVED FROM Z BAND, NO S/S BLEEDING OR SWELLING. WILL CONT CLOSE MONITORING. VSS. C/L IN REACH.
--- NOTE | 2019-08-28 11:30 | NUR ---
NO S/S BLEEDING AT WRIST SITE. PIV D/C'D INTACT, DSG APPLIED. PT ALLOWED UP TO GET DRESSED AND GO TO BR INDEPENDENTLY.
--- NOTE | 2019-08-28 11:40 | NUR ---
ALL DISCHARGE INSTRUCTIONS REVIEWED, INCLUDING RESTRICTIONS, MEDS AND F/U APPT. Z BAND OFF AND DSG APPLIED, NO S/S BLEEDING OR SWELLING. ARM BOARD IN PLACE.
--- NOTE | 2019-08-28 11:45 | NUR ---
PT D/C'D TO PRIVATE VEHICLE WITH BROTHER. PT HAS HIS DENTURES, PAPER WORK AND BELONGINGS.
== END 2019-08-28 11:45 | disposition home or self-care (01) ==
LOC: D.CATH 06:45
PROVIDERS: ATTEND Internal Medicine Cardiovascular Disease
DX: I20.9 Angina pectoris, unspecified (principal); K21.9 Gastro-esophageal reflux disease without esophagitis; R06.00 Dyspnea, unspecified; R55 Syncope and collapse; I35.0 Nonrheumatic aortic (valve) stenosis